=== PATIENT | female | born 1945 | race Caucasian/White ===

== ENCOUNTER → 2017-02-27 | Outpatient (CLI) | payer OTHER, MEDICARE ==
[2017-02-27 17:54] LABS: BASO % 0.5 %; BASO ABS # 0.04 K/uL (0-0.2); COMPLETE YES; EOS % 2.5 %; HEMATOCRIT 36.2 % (37-47); IG% 0.1 %; LYMPH % 30.6 %; MEAN CELL VOLUME 79.4 fL (80-100); MEAN CORPUSCULAR HEMOGLOBIN 25.2 pg (25-34); MEAN CORPUSCULAR HGB CONC 31.8 g/dl (32-36); MEAN PLATELET VOLUME 9.2 fL (7.4-10.4); MONO % 7.2 %; NEUT % 59.1 %; PLATELET COUNT 318 K/uL (130-400); RED BLOOD COUNT 4.56 M/uL (4.2-5.4); WHITE BLOOD COUNT 8.16 K/uL (4.8-10.8)
[2017-02-27 18:26] LABS: ALKALINE PHOSPHATASE 136 U/L (45-117); ALT/SGPT 25 U/L (12-78); AST/SGOT 20 U/L (15-37); TOTAL IRON BINDING CAPACITY 431 mcg/dl (250-450)
== END | disposition home or self-care (01) ==
LOC: C.LABMFLN 15:49
PROVIDERS: ATTEND Family Medicine
DX: M79.1 Myalgia (principal); D64.9 Anemia, unspecified; M25.50 Pain in unspecified joint; K76.0 Fatty (change of) liver, not elsewhere classified